=== PATIENT | female | born 1960 | race Caucasian/White ===

== ENCOUNTER 2019-06-22 15:55 | Inpatient (IN) | payer MEDICARE, OTHER ==
[~2019-06-22] VITALS: Ht 162.6 cm; Wt 92.7 kg
[2019-06-22 16:31] LABS: PCO2 Arterial 52.8 mmHg (35-45); pH Blood Arterial 7.32 (7.35-7.45)
[2019-06-22 16:38] LABS: Hematocrit 41.8 % (33.0-51.0); Hemoglobin 13.2 g/dL (11.5-16.0); Mean Corpuscular HGB 30.5 pg (26.0-34.0); Mean Corpuscular HGB Conc 31.6 g/dL (31.5-36.5); Mean Corpuscular Volume 97 fL (80-100); Mean Platelet Volume 10.7 fL (9.1-12.4); Platelet Count 239 K/mm3 (150-400); RDW Coefficient Variation 15.3 % (11.7-14.2); RDW Standard Deviation 55.2 fL (35.1-46.3); Red Blood Cell Count 4.33 M/mm3 (3.80-5.20); White Blood Cell Count 24.53 K/mm3 (4.00-11.30)
[2019-06-22] MEDS ORDERED: METO10 PO (16:46)
[2019-06-22] MEDS ORDERED: Flonase 0.05% N16 GM (16:46)
[2019-06-22] MEDS ORDERED: PROAIR RESPICL90 MCG INH (16:46)
[2019-06-22] MEDS ORDERED: ZOLP10 PO (16:47)
[2019-06-22] MEDS ORDERED: BACL10 PO (16:47)
[2019-06-22] MEDS ORDERED: Bentyl10 MG PO (16:47)
[2019-06-22] MEDS ORDERED: OMEPRAZOLE20 MG PO (16:47)
[2019-06-22] MEDS ORDERED: MELO7.5 PO (16:47)
[2019-06-22] MEDS ORDERED: ROSU10TA PO (16:48)
[2019-06-22] MEDS ORDERED: DULO60 PO (16:48)
[2019-06-22] MEDS ORDERED: MONT10T PO (16:48)
[2019-06-22] MEDS ORDERED: SOLI5 PO (16:48)
[2019-06-22] MEDS ORDERED: PRAM.125 (16:48)
[2019-06-22] MEDS ORDERED: PREG100 PO (16:49)
[2019-06-22] MEDS ORDERED: BUDE6HFA INH (16:56)
[2019-06-22] MEDS ORDERED: Mirapex0.75 MG PO (16:57)
[2019-06-22 17:00] LABS: BAND PERCENT MAN 35 % (0-8); BASOPHILS PERCENT MAN 0 % (0-2); EOSINOPHILS PERCENT MAN 0 % (0-6); LYMPHOCYTES ABSOLUTE MAN 1.47 K/mm3 (0.84-5.20); LYMPHOCYTES PERCENT MAN 6 % (21-46); METAMYELOCYTE ABSOLUTE MAN 0.24 K/mm3 (0.00-0.00); METAMYELOCYTE PERCENT MAN 1 % (0-0); MONOCYTES ABSOLUTE MAN 0.49 K/mm3 (0.16-1.47); MONOCYTES PERCENT MAN 2 % (4-13); NEUTROPHILS ABSOLUTE MAN 22.32 K/mm3 (1.96-9.15); SEG NEUTROPHILS PERCENT MAN 56 % (41-73); TOTAL CELLS COUNTED 100
[2019-06-22 17:10] LABS: Troponin I <0.015 ng/mL (0.000-0.040)
[2019-06-22 17:13] LABS: Alanine Aminotransfer (ALT/SGP 21 U/L (12-78); Albumin, Blood 3.2 g/dL (3.4-5.0); Albumin/Globulin Ratio 0.7 (0.8-1.8); Alk Phos 81 U/L (50-136); Anion Gap 8 mmol/L (6-16); Aspartate Aminotrans (AST/SGOT 12 U/L (12-37); Bilirubin, Total 0.5 mg/dL (0.1-1.0); Blood Urea Nitrogen 17 mg/dL (8-24); Bun/Creatinine Ratio 23.2 (12.0-20.0); CO2, Blood 25 mmol/L (21-32); Calcium, Blood 9.9 mg/dL (8.5-10.1); Chloride, Blood 103 mmol/L (98-108); Creatinine, Blood 0.73 mg/dL (0.40-1.00); Globulin, Blood 4.7 g/dL (2.2-4.0); Glomerular Filtration Rate >60 (60-); Glucose, Blood 180 mg/dL (70-99); Potassium, Blood 3.1 mmol/L (3.5-5.5); Sodium, Blood 136 mmol/L (136-145); Total Protein, Blood 7.9 g/dL (6.4-8.2)
--- NOTE | 2019-06-22 22:00 | NUR ---
PCU ADMIT PT BROUGHT TO PCU RM 16 FROM THE ER BY KENDELL @ APPROX 2115. PT A&O X4. ON BIPAP: 08/12, FIO2 40%, RR 30'S. PT REPORTS 2L NC PRN FOR HOME BASELINE O2 USE AND CPAP AT NIGHT. PT ABLE TO STAND AND AMBULATE FROM [facility] TO PCU BED W/ 1 PERSON SBA. MONITOR SHOWS NSR/ST, HR 90-110. PT'S DAUGHTER AT BEDSIDE. WILL CONTINUE TO MONITOR AND PROVIDE CARE.
[2019-06-23 00:47] LABS: Adenovirus Not Detected (NOT DETECT); Bordetella pertussis Not Detected (NOT DETECT); Chlamydophila pneumoniae Not Detected (NOT DETECT); Coronavirus 229E Not Detected (NOT DETECT); Coronavirus HKU1 Not Detected (NOT DETECT); Coronavirus NL63 Not Detected (NOT DETECT); Coronavirus OC43 Not Detected (NOT DETECT); Human Metapneumovirus Not Detected (NOT DETECT); Human Rhinovirus/Enterovirus Not Detected (NOT DETECT); Influenza A Not Detected (NOT DETECT); Influenza A/2009-H1 Not Detected (NOT DETECT); Influenza A/H1 Not Detected (NOT DETECT); Influenza A/H3 Not Detected (NOT DETECT); Influenza B Not Detected (NOT DETECT); Mycoplasma pneumoniae Not Detected (NOT DETECT); Parainfluenza Virus 1 Not Detected (NOT DETECT); Parainfluenza Virus 2 Not Detected (NOT DETECT); Parainfluenza Virus 3 Not Detected (NOT DETECT); Parainfluenza Virus 4 Not Detected (NOT DETECT); Respiratory Syncytial Virus Not Detected (NOT DETECT)
--- NOTE | 2019-06-23 04:13 | NUR ---
SHIFT SUMMARY PT A&O X4. PT WEARING BIPAP 08/12, FIO2 40% TITRATED TO FIO2 35% THIS SHIFT. PT NOT TOLERATING BEING OFF BIPAP, DESATING LOW 84% W/ BRIEF MASK REMOVAL FOR PO HYDRATION AND MOUTH MOISTURIZING. PT QUICKLY RECOVERING W/ BIPAP REAPPLICATION. RR 20'S-30'S. PT'S HEAD AND NECK SWEATING PROFUSELY THIS AM, THOUGH TEMP WNL AND VSS. PT REPORTS HAVING SWEATY EPISODES ON AND OFF. FAN AND COLD WASH CLOTH PROVIDED. PT C/O ONGOING 06/14 PAIN T/O CHEST DESCRIBED "GRABBING" SENSATION IN WHICH PT CLUTCHES BOTH SIDES OF CHEST WITH BOTH HANDS. PAIN DECREASED TO 7/10 W/ TX PER EMAR. PT C/O PAIN WORSE W/ OCCASSIONAL COUGH THAT IS OCCASSIONALLY PRODUCTIVE OF THICK HOOD SPUTUM. PT CALM AND COOPERATIVE W/ CARE. MEDICATIONS GIVEN PER EMAR. WILL CONTINUE TO MONITOR AND PROVIDE CARE UNTIL REPORT OFF TO DAY SHIFT RN.
[2019-06-23 04:21] LABS: Hematocrit 36.1 % (33.0-51.0); Hemoglobin 11.6 g/dL (11.5-16.0); Mean Corpuscular HGB 30.9 pg (26.0-34.0); Mean Corpuscular HGB Conc 32.1 g/dL (31.5-36.5); Mean Corpuscular Volume 96 fL (80-100); Mean Platelet Volume 10.8 fL (9.1-12.4); Platelet Count 201 K/mm3 (150-400); RDW Coefficient Variation 15.6 % (11.7-14.2); RDW Standard Deviation 55.6 fL (35.1-46.3); Red Blood Cell Count 3.76 M/mm3 (3.80-5.20); White Blood Cell Count 22.85 K/mm3 (4.00-11.30)
[2019-06-23 04:36] LABS: Anion Gap 6 mmol/L (6-16); BAND PERCENT MAN 28 % (0-8); BASOPHILS PERCENT MAN 0 % (0-2); Blood Urea Nitrogen 25 mg/dL (8-24); Bun/Creatinine Ratio 31.1 (12.0-20.0); CO2, Blood 28 mmol/L (21-32); Calcium, Blood 9.1 mg/dL (8.5-10.1); Chloride, Blood 105 mmol/L (98-108); Creatinine, Blood 0.81 mg/dL (0.40-1.00); EOSINOPHILS PERCENT MAN 0 % (0-6); Glomerular Filtration Rate >60 (60-); Glucose, Blood 143 mg/dL (70-99); LYMPHOCYTES ABSOLUTE MAN 0.68 K/mm3 (0.84-5.20); LYMPHOCYTES PERCENT MAN 3 % (21-46); METAMYELOCYTE ABSOLUTE MAN 0.22 K/mm3 (0.00-0.00); METAMYELOCYTE PERCENT MAN 1 % (0-0); MONOCYTES ABSOLUTE MAN 0.45 K/mm3 (0.16-1.47); MONOCYTES PERCENT MAN 2 % (4-13); MYELOCYTE ABSOLUTE MAN 0.45 K/mm3 (0.00-0.00); MYELOCYTE PERCENT MAN 2 % (0-0); Magnesium, Blood 2.5 mg/dL (1.6-2.4); NEUTROPHILS ABSOLUTE MAN 21.02 K/mm3 (1.96-9.15); Phosphorus, Blood 2.8 mg/dL (2.5-4.9); Potassium, Blood 4.6 mmol/L (3.5-5.5); SEG NEUTROPHILS PERCENT MAN 64 % (41-73); Sodium, Blood 139 mmol/L (136-145); TOTAL CELLS COUNTED 100
[2019-06-23 05:07] LABS: PCO2 Arterial 52.8 mmHg (35-45); PO2 Arterial 71.7 mmHg (80-100); pH Blood Arterial 7.34 (7.35-7.45)
--- NOTE | 2019-06-23 07:40 | NUR ---
AM NOTE. ASSUMED CARE OF PT APROX 0700, PT IS A&Ox4 AND SBA IN THE ROOM. PT WAS ADMITTED FOR ACUTE RESP FAILURE AND IS ON BIPAP WITH SETTINGS OF 10/8, FI02 OF 35% AND A BACK UP RATE OF 14. PT'S RR IS 25-30. L/S VERY TIGHT, EXP WHEEZES AND VERY DIM T/O. PT C/O OF CHEST PAIN RELATED TO HER WORK OF BREATHING, PT MEDICATED PER EMAR. PT'S DAUGHTER IS AT THE BEDSIDE AT THIS TIME. PT'S BP 143/95, NSR IN THE 90'S. NO EDEMA NOTED ON ASSESSMENT, BT PRESENT AND HYPERACTIVE, ABD IS SOFT AND NONTENDER TO PALP. CALL LIGHT IN REACH, BED IS LOCKED AND LOW WILL CONTINUE TO MONITOR.
[2019-06-23 15:08] LABS: U Amphetamine Screen Not Detected; U Barbituate Screen Not Detected; U Benzodiazapine Screen Not Detected; U Buprenorphine Screen Not Detected; U Cannabinoids Screen DETECTED; U Cocaine Screen Not Detected; U Methadone Screen Not Detected; U Methamphetamine Screen Not Detected; U Opiates Screen Not Detected; U Oxycodone Screen Not Detected; U Phencyclidine Screen Not Detected; U Propoxyphene Screen Not Detected
--- NOTE | 2019-06-23 18:26 | NUR ---
SHIFT SUMMARY. PT'S WORK OF BREATHING AND ACCESSORY MUSCLE USE HAS INCREASED SINCE EARLIER THIS SHIFT. PT IS C/O OF MORE SEVERE CHEST PAIN ACROSS HER CHEST AND UNDERNEATH BOTH BREASTS. PT'S O2 SATS ON THE BIPAP HAVE NOT CHANGED, HOWEVER PT'S L/S ARE MUCH MORE DIM THAN THIS MORNING, THEY ARE SOUND MORE TIGHT AND COARSE WELL. PT BECOMES MORE DYSPNIC WITH ACTIVITY AND SATS DROP VERY QUICKLY JUST TO GET ON THE BEDPAN. NO CHANGES HAVE BEEN NOTED ON TELE FOR THIS PT. BLADDER SCAN WAS DONE AND 170 MLS WAS FOUND. PROVIDER WAS CALLED AND ORDERS OBTAINED. WILL CONTINUE TO MONITOR UNTIL REPORT IS GIVEN TO ONCOMING RN.
[2019-06-23 21:11] LABS: Vancomycin, Trough 18.6 ug/mL (5.0-10.0)
[2019-06-24 04:18] LABS: BASOPHILS ABSOLUTE AUTO 0.04 K/mm3 (0.00-0.23); BASOPHILS PERCENT AUTO 0 % (0-2); EOSINOPHILS PERCENT AUTO 0 % (0-6); Hematocrit 34.2 % (33.0-51.0); Hemoglobin 10.9 g/dL (11.5-16.0); IMMATURE GRAN ABSOLUTE AUTO 0.61 K/mm3 (0.00-0.10); IMMATURE GRAN PERCENT AUTO 3 % (0-1); LYMPHOCYTES ABSOLUTE AUTO 0.45 K/mm3 (0.84-5.20); LYMPHOCYTES PERCENT AUTO 2 % (21-46); MONOCYTES ABSOLUTE AUTO 0.49 K/mm3 (0.16-1.47); MONOCYTES PERCENT AUTO 2 % (4-13); Mean Corpuscular HGB 30.8 pg (26.0-34.0); Mean Corpuscular HGB Conc 31.9 g/dL (31.5-36.5); Mean Corpuscular Volume 97 fL (80-100); Mean Platelet Volume 11.1 fL (9.1-12.4); NEUTROPHILS PERCENT AUTO 93 % (41-73); Platelet Count 179 K/mm3 (150-400); RDW Coefficient Variation 15.7 % (11.7-14.2); RDW Standard Deviation 56.1 fL (35.1-46.3); Red Blood Cell Count 3.54 M/mm3 (3.80-5.20); White Blood Cell Count 22.19 K/mm3 (4.00-11.30)
[2019-06-24 04:28] LABS: Anion Gap 8 mmol/L (6-16); Blood Urea Nitrogen 35 mg/dL (8-24); Bun/Creatinine Ratio 45.9 (12.0-20.0); CO2, Blood 25 mmol/L (21-32); Calcium, Blood 9.3 mg/dL (8.5-10.1); Chloride, Blood 106 mmol/L (98-108); Creatinine, Blood 0.76 mg/dL (0.40-1.00); Glomerular Filtration Rate >60 (60-); Glucose, Blood 158 mg/dL (70-99); Potassium, Blood 4.6 mmol/L (3.5-5.5); Sodium, Blood 139 mmol/L (136-145)
--- NOTE | 2019-06-24 06:36 | NUR ---
Shift Summary Pt remains on BIPAP this shift with settings 08/12 at 35% fio2 with o2 saturations >92%. Pt remains alert and oriented, calls appropriately to make needs known, able to take PO medications with water. She is able to take short breaks from the BIPAP, but quickly desaturates. BIPAP promptly placed back on pt. Pt uses bedpan, is able to help with boosts and able to position self to comfort. Family with pt at bedside much of the night, went home to allow pt to sleep. Pt c/o pain x1 this shift, medicated per emar with relief. No events noted on tele, no changes to oxygen demand, no changes in lung sounds from initial shift assessment. Will continue to monitor and provide care until day RN assumes care.
--- NOTE | 2019-06-24 07:52 | NUR ---
AM NOTE. ASSUMED CARE OF PT APROX 0700. PT IS A&Ox4 AND ON BEDREST, PT WAS ADMITTED D/T ACUTE RESP FAILURE. PT IS ON BIPAP WITH SETTINGS 10/8 AND FI02 OF 35%. PT'S RR HAS SLOWED SINCE YESTERDAY, AND WORK OF BREATHING HAS IMPROVED A LITTLE WELL. L/S TIGHT WITH EXP WHEEZES AND DIM T/O BUT HAS IMPROVED WELL, IMPROVED AIR MOVEMENT IS HEARD TODAY WELL. PT IS IN NSR IN THE 80'S NO EDEMA NOTED ON ASSESSMENT. BT PRESENT AND HYPERACTIVE, ABD IS MOD DISTENDED, VERY FIRM AND TENDER TO PALP, ABD WAS NOT FIRM OR TENDER YESTERDAY. CALL LIGHT IN REACH, WILL CONTINUE TO MONITOR.
--- NOTE | 2019-06-24 15:15 | NUR ---
INITIAL [facility] CLINICAL VIST. REFERRAL RECEIVED DUE TO SEVERE COPD, LISTED END STAGE. EMR REVIEWED. PT IS 58 YEAR OLD FEMALE VISITING FROM [place]. SHE CAME TO [place] TO HELP HER DAUGHTER WITH SUPERVISOR PHOTOENGRAVING FOR A MONTH. THEY WERE CAMPING AND PT BEGAN FEELING CONGESTION, TIGHTNESS AND PAIN IN THE RIGHT CHEST AREA, NOW NOTED TO BE MORE ON THE LEFT. SHE WAS ADMITTED TO HOSPITAL WITH PNEUMONIA, COPD EXACERBATION, HYPOXIA/ACUTE RESP FAILURE. INITIALLY SHE REQUIRED BIPAP AND DID NOT TOLERATE BEING OFF BIPAP FOR VERY LONG. PT SITTING IN BED WITH NASAL CANULA ON TODAY. SHE IS DYSPNIC WITH CONVERSATION BUT ABLE TO CONVERSE FOR 15 MINUTES OR SO. SHE HAS A HOME CONCENTRATOR FOR O2 IN [place] AND BROUGHT A PORTABLE O2 CONCENTRATOR WITH HER BUT IT DOES NOT WORK UNLESS IN A CAR OUTLET. SHE ALSO HAS HX OF MANJIT, OBESITY AND IS CPAP DEPENDENT. SHE DID BRING A FUNCTIONING CPAP WITH HER BUT WAS NOT CLEAR IF SHE HAD A PORTABLE ONE OR BATTERIES TO USE WHILE CAMPING. PT USES [employer] HER RESP DME PROVIDER IN [place]. SHE STATES HER [employer] FABRICATOR ASSEMBLER AT HOME WAS WORKING ON GETTING HER A NEW PORTABLE. SHE EXPRESSES CONCERN R/T FINANCES AND HER HOSPITAL BILL. I SPOKE WITH SENIOR TELECOMMUNICATIONS TECHNICIAN WHO CONFIRMS THEY ARE IN CONTACT WITH HER OUT OF AREA INSURANCE BUT CANNOT CONFIRM LEVEL OF COVERAGE. I PASSED THIS ON TO PATIENT & ASKED HER TO CALL INSURANCE AFTER D/C WHEN SHE WAS FEELING UP TO IT TO CHECK IN WITH THEM. I OBTAINED A FINANCIAL DISCOSURE FORM/APPLICATION FOR HER TO COMPLETE IF SHE FEELS SHE NEEDS CONSIDERATION/HELP WITH HER MEDICAL EXPENSES. REVIEWED ANALGESICS AVAILABLE TO HER AND PT UNDERSTANDS AND FEELS HER CURRENT REGIME IS WORKING ADEQUATELY FOR HER. DISCUSSED COMPLICATIONS OF BEDREST. PT DOING BETTER TODAY DUE TO LESS SOB AND I ENCOURAGED HER TO INCREASE BED MOBILITY AND TIME OOB WITH PACING. SPOKE TO DR WALKER: MY VISIT. ORDER OBTAINED FOR PT EVAL TO HELP PT WITH PACING ACTIVITY AND INCREASING ACTIVITY WITH DECREASED SOBOE. ORDER ENTERED FOR DC PLANNING AND REPORT GIVEN TO ECONOMIC RESEARCH ANALYST FOR ASSIST WITH OBTAINING RESPIRATORY DME NEEDED AT D/C. PT REPORTS HER BREATHING IS MUCH BETTER IN [place] AND IS LOOKING FORWARD TO GETTING BACK HOME WHEN SHE IS WELL ENOUGH TO TRAVEL. PAL [facility] TO REMAIN AVAILABLE AND RETURN IF INDICATED/REQUESTED.
[2019-06-24] MEDS ORDERED: LOSA50 PO (17:57)
--- NOTE | 2019-06-24 18:44 | NUR ---
SHIFT SUMMARY. NO ACUTE NEGATIVE CHANGES NOTED THIS SHIFT. PT HAS BEEN OFF THE BIPAP MOST OF THE DAY, SHE HAS BEEN STABLE ON 4L NC WITH O2 SATS >90%. PT HAS BEEN UP TO THE BSC TO VOID AND HAD A BEDBATH TODAY. PT TOLERATES THIS WELL. PT'S BP HAS BEEN HYPERTENSIVE WITH SBP 173. SPOKE WITH THE PT ABOUT HER BP, PT STATED SHE TAKES [place] AT HOME. PROVIDER WAS CALLED, MED REQ WAS UPDATED. PT'S DIET IS ADVANCE TOLERATED AT THIS TIME. CALL LIGHT IN REACH, WILL CONTINUE TO MONITOR UNTIL REPORT IS GIVEN TO ONCOMING RN.
--- NOTE | 2019-06-24 19:33 | NUR ---
HTN NOTED UPON INITIAL VS ASSESSMENT; [facility] CALLED AND NOTIFIED, ORDERS RECIEVED, AWAITING MEDICATION FROM PHARMACY AT THIS TIME.
[2019-06-24 21:35] LABS: Vancomycin, Trough 21.6 ug/mL (5.0-10.0)
--- NOTE | 2019-06-24 23:53 | NUR ---
Assumed care of pt at appros 191. Pt presents sitting in bed with BIPAP in place; settings 08/12 at 30% fio2. Pt able to tolerate brief breaks from BIPAP. She is alert and oriented, found to be HTN upon initial assessment. MD notified, orders recieved, pt medicated per orders and blood pressure resolved to normotensive. Pt denies pain at this time but has had hx of chest muscle pain d/t labored breathing. No events on tele so far. Pt calls appropriately, SBA to BSC for voiding, becomes moderately EDWARDS but recovers within moments of rest. See shift assessment for detailed assessment. Will continue to monitor and provide care.
--- NOTE | 2019-06-25 00:23 | NUR ---
Report given to NIMO Jennings who assumes care.
[2019-06-25 04:07] LABS: BASOPHILS ABSOLUTE AUTO 0.03 K/mm3 (0.00-0.23); BASOPHILS PERCENT AUTO 0 % (0-2); EOSINOPHILS PERCENT AUTO 0 % (0-6); Hematocrit 36.7 % (33.0-51.0); Hemoglobin 11.5 g/dL (11.5-16.0); IMMATURE GRAN ABSOLUTE AUTO 0.25 K/mm3 (0.00-0.10); IMMATURE GRAN PERCENT AUTO 1 % (0-1); LYMPHOCYTES ABSOLUTE AUTO 0.53 K/mm3 (0.84-5.20); LYMPHOCYTES PERCENT AUTO 3 % (21-46); MONOCYTES ABSOLUTE AUTO 0.38 K/mm3 (0.16-1.47); MONOCYTES PERCENT AUTO 2 % (4-13); Mean Corpuscular HGB 30.4 pg (26.0-34.0); Mean Corpuscular HGB Conc 31.3 g/dL (31.5-36.5); Mean Corpuscular Volume 97 fL (80-100); Mean Platelet Volume 10.7 fL (9.1-12.4); NEUTROPHILS ABSOLUTE AUTO 16.47 K/mm3 (1.96-9.15); NEUTROPHILS PERCENT AUTO 93 % (41-73); Platelet Count 234 K/mm3 (150-400); RDW Coefficient Variation 15.7 % (11.7-14.2); RDW Standard Deviation 56.7 fL (35.1-46.3); Red Blood Cell Count 3.78 M/mm3 (3.80-5.20); White Blood Cell Count 17.66 K/mm3 (4.00-11.30)
[2019-06-25 04:32] LABS: Anion Gap 4 mmol/L (6-16); Blood Urea Nitrogen 25 mg/dL (8-24); Bun/Creatinine Ratio 36.6 (12.0-20.0); CO2, Blood 30 mmol/L (21-32); Calcium, Blood 9.6 mg/dL (8.5-10.1); Chloride, Blood 108 mmol/L (98-108); Creatinine, Blood 0.68 mg/dL (0.40-1.00); Glomerular Filtration Rate >60 (60-); Glucose, Blood 147 mg/dL (70-99); Potassium, Blood 4.8 mmol/L (3.5-5.5); Sodium, Blood 142 mmol/L (136-145)
--- NOTE | 2019-06-25 05:00 | NUR ---
SHIFT SUMMARY ..ASSUMED CARE AT 0100. ALLOWED TO MOSTLY SLEEP AND AROUSED FOR VS. COMFORTABLE REMAINING ON BIPAP AND MENTATION CHECK WNL . ORIENTED AND EXPRESSES NO ACUTE NEEDS. BP AT 0500 DID NOT REQUIRE PRN MEDS.
--- NOTE | 2019-06-25 17:26 | NUR ---
SUMMARY PT TRANSFERRED UP FROM PCU TODAY, PT IS ALERT AND ORIENTED, IS A ONE PERSON ASSIST UP TO THE BATHROOM, LACEY RT DID COPD EDUCATION WITH THE PT AND WILL BE CONTACTING HER OXYGEN COMPANY, [employer], TO GET HER A PORTABLE TANK TO GO HOME WITH, PT MED PER EMAR FOR PAIN, VSS, NO ACUTE CHANGES, WILL CONT TO MONITOR
--- NOTE | 2019-06-26 04:24 | NUR ---
SHIFT SUMMARY PT'S BLOOD PRESSURE REMAINS ELEVATED THIS EVENING. MEDICATED X'S 2 WITH 10 MG HYDRALAZINE. SOMEWHAT EFFECTIVE LOWERING SYSTOLIC BP FROM 180'S-190'S TO 160'S. PT'S BECOMES SOB W/ EXERTION, USING PURSED LIP BREATHING FOR A SHORT WHILE AFTER EXERTING HERSELF BEFORE BREATHING IMPROVES. PT ON 3.5 L O2 NC WHEN NOT WEARING HOME BIPAP THIS EVENING. O2 SATS IN THE LOW TO MID 90'S. LUNG SOUNDS COARSE WITH WHEEZING THROUGHOUT. PT REPORTS PAIN IN RIB AREA. MEDICATED X'S 2 WITH 0.5 MG DILAUDID. PT SLEPT WELL OFF AND ON THROUGHOUT THE NIGHT. OTHERWISE NO ACUTE CHANGES. WILL CONTINUE TO MONITOR.
--- NOTE | 2019-06-26 17:12 | NUR ---
SUMMARY PT SITTING UP IN BED WATCHING TV, HAS BEEN MOSTLY INDEPENDENT IN THE ROOM TO THE BATHROOM, SOB WITH ANY ACTIVITY, TAKES A FEW MINUTES TO RECOVER, PT MED PER EMAR FOR C/O PAIN, NO COMPLAINTS, VSS, NO ACUTE CHANGES, WILL CONT TO MONITOR
--- NOTE | 2019-06-26 18:50 | NUR ---
Pal Spiritual cAre intial note: Oanh was alone in room and appeared somewhat guarded by manager editorial presence. She is here from [place] to visit her grand-kids. She admits to feeling irritated she ended up getting sick. She beleives she is improving, however. She declined prayer and denied concerns. District Manager [employer] will remain available.
[2019-06-27 04:50] LABS: BASOPHILS ABSOLUTE AUTO 0.03 K/mm3 (0.00-0.23); BASOPHILS PERCENT AUTO 0 % (0-2); EOSINOPHILS ABSOLUTE AUTO 0.01 K/mm3 (0.00-0.68); EOSINOPHILS PERCENT AUTO 0 % (0-6); Hematocrit 33.7 % (33.0-51.0); Hemoglobin 10.7 g/dL (11.5-16.0); IMMATURE GRAN ABSOLUTE AUTO 0.17 K/mm3 (0.00-0.10); IMMATURE GRAN PERCENT AUTO 2 % (0-1); LYMPHOCYTES PERCENT AUTO 20 % (21-46); MONOCYTES ABSOLUTE AUTO 1.27 K/mm3 (0.16-1.47); MONOCYTES PERCENT AUTO 12 % (4-13); Mean Corpuscular HGB 30.3 pg (26.0-34.0); Mean Corpuscular HGB Conc 31.8 g/dL (31.5-36.5); Mean Corpuscular Volume 96 fL (80-100); NEUTROPHILS ABSOLUTE AUTO 7.37 K/mm3 (1.96-9.15); NEUTROPHILS PERCENT AUTO 67 % (41-73); RDW Coefficient Variation 15.7 % (11.7-14.2); Red Blood Cell Count 3.53 M/mm3 (3.80-5.20); White Blood Cell Count 11.05 K/mm3 (4.00-11.30)
[2019-06-27 04:54] LABS: Mean Platelet Volume 11.3 fL (9.1-12.4); Platelet Count 178 K/mm3 (150-400)
[2019-06-27 05:04] LABS: Anion Gap 5 mmol/L (6-16); Blood Urea Nitrogen 11 mg/dL (8-24); Bun/Creatinine Ratio 17.5 (12.0-20.0); CO2, Blood 33 mmol/L (21-32); Calcium, Blood 9.4 mg/dL (8.5-10.1); Chloride, Blood 102 mmol/L (98-108); Creatinine, Blood 0.63 mg/dL (0.40-1.00); Glomerular Filtration Rate >60 (60-); Glucose, Blood 87 mg/dL (70-99); Potassium, Blood 3.8 mmol/L (3.5-5.5); Sodium, Blood 140 mmol/L (136-145)
--- NOTE | 2019-06-27 05:04 | NUR ---
SHIFT SUMMARY NO ACUTE CHANGES THIS SHIFT. PT CONTINUES TO BE SOB W/ EXERTION, TAKING QUITE A WHILE TO RECOVER ONCE RESTING AGAIN. REMAINS ON 3.5 L WHEN WEARING NASAL CANNULA. PT WORE HER HOME BIPAP THROUGH MOST OF THE NIGHT. LUNG SOUNDS COARSE AND WHEEZY. MEDICATED PT W/ ROXICODONE 5 MG X 1 AND DILAUDID O.5 MG X 1 FOR RIB/LUNG PAIN. BLOOD PRESSURE REMAINS ELEVATED AT 176/101, MEDICATED W/ HYDRALAZINE 10 MG. OTHERWISE VSS. WILL CONTINUE TO MONITOR.
--- NOTE | 2019-06-27 17:12 | NUR ---
SUMMARY PT RESTING IN BED VISITING WITH FAMILY, PT JUST HAD HER HOME O2 EVALUATION, WILL FAX TO [facility] PER EMAR FOR PAIN, VCSS, NO ACUTE CHANGES, WILL CONT TO MONITOR
--- NOTE | 2019-06-28 03:00 | NUR ---
NOC SHIFT SUMMARY PT IS PLEASANT AND COOPERATIVE WITH CARE. ADMITTED FOR RESP FAILURE AND STAPH PNEUMONIA. HX COPD. WEARING CPAP AND CONTPULSE OX. 3.5L VIA NC. PRESENTLY SLEEPING AND SATS ARE 96%. SHE IS NORMALY ON 2.5L NC AT HOME. SHE WENT TO SLEEP EARLY THIS NIGHT. STATES SHE USUALLY GOES TO BED AROUND [id number]. HAS MOSTLY SLEPT THIS NIGHT. NO COMPLAINTS OF PAIN OR DISCOMFORT. VSS. APPEARS IN NO ACUTE DISTRESS. WILL CONTINUE TO MONITOR.
[2019-06-28 04:49] LABS: BASOPHILS ABSOLUTE AUTO 0.02 K/mm3 (0.00-0.23); BASOPHILS PERCENT AUTO 0 % (0-2); EOSINOPHILS ABSOLUTE AUTO 0.07 K/mm3 (0.00-0.68); EOSINOPHILS PERCENT AUTO 1 % (0-6); Hematocrit 35.5 % (33.0-51.0); Hemoglobin 11.4 g/dL (11.5-16.0); IMMATURE GRAN ABSOLUTE AUTO 0.28 K/mm3 (0.00-0.10); IMMATURE GRAN PERCENT AUTO 2 % (0-1); LYMPHOCYTES ABSOLUTE AUTO 2.79 K/mm3 (0.84-5.20); LYMPHOCYTES PERCENT AUTO 22 % (21-46); MONOCYTES ABSOLUTE AUTO 1.37 K/mm3 (0.16-1.47); MONOCYTES PERCENT AUTO 11 % (4-13); Mean Corpuscular HGB 29.6 pg (26.0-34.0); Mean Corpuscular HGB Conc 32.1 g/dL (31.5-36.5); Mean Platelet Volume 10.3 fL (9.1-12.4); NEUTROPHILS PERCENT AUTO 64 % (41-73); Platelet Count 262 K/mm3 (150-400); RDW Coefficient Variation 15.4 % (11.7-14.2); RDW Standard Deviation 51.5 fL (35.1-46.3); Red Blood Cell Count 3.85 M/mm3 (3.80-5.20); White Blood Cell Count 12.43 K/mm3 (4.00-11.30)
[2019-06-28 04:52] LABS: Mean Corpuscular Volume 92 fL (80-100)
[2019-06-28 05:03] LABS: Anion Gap 6 mmol/L (6-16); Blood Urea Nitrogen 9 mg/dL (8-24); Bun/Creatinine Ratio 13.9 (12.0-20.0); CO2, Blood 34 mmol/L (21-32); Calcium, Blood 9.6 mg/dL (8.5-10.1); Chloride, Blood 96 mmol/L (98-108); Creatinine, Blood 0.65 mg/dL (0.40-1.00); Glomerular Filtration Rate >60 (60-); Glucose, Blood 94 mg/dL (70-99); Potassium, Blood 3.4 mmol/L (3.5-5.5); Sodium, Blood 136 mmol/L (136-145)
--- NOTE | 2019-06-28 09:42 | NUR ---
FAXED DOCUMENTATION TO REQUEST HOME 02 EQUIPMENT FOR PAITENT CONFIRMATION RECEIPT RECEIVED "OK".
[2019-06-28] MEDS ORDERED: AMLO10 PO (14:45)
[2019-06-28] MEDS ORDERED: Mucinex1200 MG PO (14:46)
[2019-06-28] MEDS ORDERED: ALBU3IS INH (14:47)
[2019-06-28] MEDS ORDERED: Vsl#3 Capsule1 EACH PO (14:48)
--- NOTE | 2019-06-28 14:49 | NUR ---
CALLED [facility] TO REQUEST TIME OF 02 DELIVERY.
[2019-06-28] MEDS ORDERED: LEVFLO500 PO (14:51)
[2019-06-28] MEDS ORDERED: MIRALAX17 GM PO (14:53)
[2019-06-28] MEDS ORDERED: ROXICODONE5 MG PO (14:53)
[2019-06-28] MEDS ORDERED: Prednisone10 MG PO (14:56)
[2019-06-28] MEDS ORDERED: SENN187 PO (14:57)
--- NOTE | 2019-06-28 18:09 | NUR ---
SPOKE WITH [facility] THEY VERIFIED THAT THE COMPLETED RESPIRATORY FORM WAS RECEIVED AND THAT THEY WOULD EXPEDITE THE ORDER FOR HOME O2 AND DELIVER THE 02 BY THIS PM.
--- NOTE | 2019-06-28 19:10 | NUR ---
SHIFT SUMMARY: NO ACUTE CHANGES TO REPORT THIS SHIFT. PT A&O; CALM AND COOPERATIVE WITH CARE. NO C/O PAIN THIS SHIFT. PT MEDICALY STABLE & READY FOR DISCHARGE; AWAITING [facility] O2 DELIVERY. REPORT GIVEN TO ONCOMING RN.
== END 2019-06-28 19:32 | disposition home or self-care (01) | DRG 871 ==
LOC: ER 15:55 → MEDS 18:18 → PCU 18:18 → MEDS 06-25 10:30
PROVIDERS: Hospitalist; Internal Medicine; Nurse Practitioner Acute Care; Pharmacist; ADMIT Hospitalist
DX: A41.01 Sepsis due to Methicillin susceptible Staphylococcus aureus (principal); J96.01 Acute respiratory failure with hypoxia; J96.02 Acute respiratory failure with hypercapnia; J15.211 Pneumonia due to Methicillin susceptible Staphylococcus aureus; J44.1 Chronic obstructive pulmonary disease with (acute) exacerbation; J44.0 Chronic obstructive pulmonary disease with (acute) lower respiratory infection; R65.20 Severe sepsis without septic shock; Z66 Do not resuscitate; I10 Essential (primary) hypertension; G47.33 Obstructive sleep apnea (adult) (pediatric); G25.81 Restless legs syndrome; E87.6 Hypokalemia; E66.9 Obesity, unspecified; Z87.891 Personal history of nicotine dependence; Z88.0 Allergy status to penicillin; Z79.1 Long term (current) use of non-steroidal anti-inflammatories (NSAID); Z79.51 Long term (current) use of inhaled steroids; Z79.899 Other long term (current) drug therapy
CPT/HCPCS: 0099U; 36415; 36600; 71045; 71260; 74150; 80048; 80053; 80202; 82803; 83605; 83735; 83880; 84100; 84145; 84484; 85025; 85379; 87040; 87070; 87077; 87147; 87186; 87205; 87449; 93005; 93010; 94640; 94660; 94762; 96365; 96366; 96367; 96368; 96375; 97110; 97116; 97162; 97530; 99285-25; J0360; J0456; J0696; J1170; J1650; J1940; J1956; J2405; J2543; J2930; J3370; J3475; J3480; J7030; J7050; J7512; Q9967